=== PATIENT | male | born 1985 | race Caucasian/White ===

== ENCOUNTER 2019-12-10 17:19 | Inpatient (IN) | payer OTHER ==
[~2019-12-10] VITALS: Ht 167.6 cm; Wt 54.4 kg
[2019-12-10 17:59] VITALS: BP_SYST 112
--- NOTE | 2019-12-10 18:06 | NUR ---
Patient to ER bed 07 to gown for evaluation. Side rails up. Report given to BRYSON Mendiola
--- NOTE | 2019-12-10 18:25 | NUR ---
LABS , UA. PT CALM, INCOMPREHENSIBLE SOUNDS. FOLLOWS COMMANDS
[2019-12-10 18:43] LABS: BASOPHILS # (AUTO) 0.1 K/uL (0.0-0.2); BASOPHILS % (AUTO) 0.6 % (0.0-2.0); EOSINOPHILS # (AUTO) 0.1 K/uL (0.0-0.4); EOSINOPHILS % (AUTO) 0.8 % (0.0-4.0); HEMATOCRIT 40.6 % (36-54); HEMOGLOBIN 13.9 g/dL (14.0-18.0); LYMPHOCYTES # (AUTO) 3.2 K/uL (1.0-5.5); LYMPHOCYTES % (AUTO) 33.2 % (20.5-51.5); MEAN CORPUSCULAR HEMOGLOBIN 32 pg (27-31); MEAN CORPUSCULAR HGB CONC 34 % (32-36); MEAN CORPUSCULAR VOLUME 93 fL (79.0-98.0); MONOCYTES # (AUTO) 0.7 K/uL (0.0-1.0); MONOCYTES % (AUTO) 7.4 % (1.7-9.3); NEUTROPHILS # (AUTO) 5.6 K/uL (1.8-7.7); PLATELET COUNT (AUTO) 331 K/uL (130-430); RED BLOOD CELL COUNT(AUTO) 4.37 MIL/uL (4.2-6.2); RED CELL DISTRIBUTION WIDTH 14.2 % (9.0-15.0); WHITE BLOOD COUNT (AUTO) 9.6 K/uL (4.8-10.8)
[2019-12-10 18:45] LABS: ANION GAP 8 (5-15); CALCIUM 8.7 mg/dL (8.4-11.0); CHLORIDE 104 mmol/L (98-107); CREATININE 0.96 mg/dL (0.55-1.30); GLUCOSE 82 mg/dL (70-99); POTASSIUM 3.8 mmol/L (3.5-5.1); SODIUM SERUM 140 mmol/L (136-145); UREA NITROGEN, BLOOD 18 mg/dL (8-21)
[2019-12-10] MEDS ORDERED: NACL 0.9% 1,000 ML IV ONE ×2 (18:45→19:46)
[2019-12-10 18:48] LABS: GFR AFRICAN AMERICAN 117 mL/min (>90)
[2019-12-10 18:50] LABS: PROTHROMBIN TIME 10.1 SECS (9.5-12.5)
[2019-12-10 18:51] LABS: ALANINE AMINOTRANSFERASE 31 U/L (12-78); ALBUMIN 4.1 g/dL (3.4-4.8); ASPARTATE AMINOTRANSFERASE 21 U/L (10-37); TOTAL BILIRUBIN 0.3 mg/dL (0.0-1.0)
[2019-12-10 18:53] LABS: ACETAMINOPHEN < 1 ug/mL (1-30); ALCOHOL, BLOOD < 3 mg/dL (<10)
--- NOTE | 2019-12-10 19:00 | NUR ---
BIB MEDICS FROM STREETS, PT SOILED, SATURATED IN URINE, WEARING MULTIPLE LAYERS OF CLOTHES BUNGIE CORD BELT. 5 PAIRS OF SOCKS. CLOTHING CUT BY MEDICS GRUNTING NOISES BUT FOLLOWS SOME COMMANDS
[2019-12-10 19:17] LABS: BILIRUBIN,URINE NEGATIVE (NEGATIVE); BLOOD, URINE NEGATIVE (NEGATIVE); CLARITY/URINE CLEAR (CLEAR); COLOR,URINE YELLOW (YELLOW); GLUCOSE,URINE NEGATIVE (NEGATIVE); KETONES,URINE NEGATIVE (NEGATIVE); LEUKOCYTE ESTERASE ,URINE NEGATIVE (NEGATIVE); NITRITE, URINE NEGATIVE (NEGATIVE); PROTEIN URINE NEGATIVE (NEGATIVE); UROBILINOGEN,URINE 0.2 (0.2-1.0)
--- NOTE | 2019-12-10 19:30 | NUR ---
CONTINUES TO MAKE GRUNTING NOISES, BUT WILL PAUSE AND SAY SOME WORDS. POOR EYE CONTACT, APPEARS TO RESPOND TO INTERNAL STIMULI.
[2019-12-10 19:42] LABS: BARBITURATE, URINE NEGATIVE (NEG <=200); BENZODIAZEPINE, URINE NEGATIVE (NEG <=150); CANNABINOID, URINE POSITIVE (NEG <=50); COCAINE, URINE NEGATIVE (NEG <=150); METHAMPHETAMINES SCREEN,URINE NEGATIVE (NEG <=500); OPIATE, URINE NEGATIVE (NEG <=100); PHENCYCLIDINE SCREEN,URINE NEGATIVE (NEG <=25); UR TRICYCLIC ANTIDEPRESSANTS NEGATIVE (NEG <=300); URINE AMPHETAMINE POSITIVE (NEG <=500); URINE METHADONE NEGATIVE (NEG <=200); URINE OXYCODONE SCREEN NEGATIVE (NEG <=100); URINE PROPOXYPHENE SCREEN NEGATIVE (NEG <=300)
[2019-12-10] MEDS ORDERED: HALOPERIDOL LACTATE 5 MG/ML VIAL IVP ONE (20:00)
[2019-12-10] MEDS ORDERED: DIPHENHYDRAMINE INJ 50 MG/ML VIAL IVP ONE (20:00)
[2019-12-10] MEDS ORDERED: LORazepam 2 MG/ML VIAL IVP ONE (20:00)
[2019-12-10] MEDS ORDERED: ONDANSETRON HCL 4 MG/2 ML VIAL IVP PRN (20:30)
[2019-12-10] MEDS ORDERED: ACETAMINOPHEN 325 MG TABLET PO PRN (20:30)
[2019-12-10] MEDS ORDERED: HALOPERIDOL LACTATE 5 MG/ML VIAL ONE (20:37)
--- NOTE | 2019-12-10 20:58 | NUR ---
ADMIT ORDERS RECEIVED, PT MEDICATED FOR AGITATION AND PSYCHOSIS
[2019-12-10 21:09] LABS: FREE T4 (FREE THYROXINE) 1.1 ng/dl (0.8-1.5); PHOSPHORUS 4.4 mg/dL (2.7-4.5); THYROID STIMULATING HORMONE 0.81 uIu/mL (0.36-3.74)
--- NOTE | 2019-12-10 21:47 | NUR ---
Patient will be admitted to care of . Admitted to unit. Will go to room . Belongings list completed. Complete and up to date summary report printed. SBAR report to be given at bedside with opportunity for questions.
--- NOTE | 2019-12-10 21:55 | NUR ---
Admission Note Received patient from ER with diagnosis of Acute psychosis. Initial Plan of Care discussed-patient resting in bed. Oriented to room, call light, pain management and safety.
[2019-12-10 22:00] VITALS: BP_SYST 107
[2019-12-10 22:42] VITALS: BP_SYST 107
--- NOTE | 2019-12-11 00:15 | NUR ---
Rounds: Patient is in bed sleeping. No signs of acute distress. Even, nonlabored breathing on room air. IV site dry and intact. IV fluids are infusing well. Call light is with patient. Safety and fall precautions in place. Will continue to monitor
[2019-12-11 00:28] VITALS: BP_SYST 92
--- NOTE | 2019-12-11 02:00 | NUR ---
Rounds: Patient is in bed sleeping. No signs of acute distress. Respirations are even and nonlabored. Call light is with patient. Safety and fall precautions are in place. Will continue to monitor.
--- NOTE | 2019-12-11 04:18 | NUR ---
Rounds: Patient is sleeping in bed. No acute distress. Even, nonlabored respirations. IV fluids infusing well. Call light is with patient. Safety and fall precautions in place. Will continue to monitor.
--- NOTE | 2019-12-11 05:52 | NUR ---
Rounds: Patient is awake, brushing his teeth. No acute distress. Even, nonlabored breathing on room air. IV fluids infusing well. Patient speech is mostly incomprehensible, but is asking for a snack. Patient's diet is NPO. Patient is able to drink water without any signs of aspiration. Call light is with patient. Safety and fall precautions in place. Will call to advance diet.
--- NOTE | 2019-12-11 06:10 | NUR ---
Spoke with Dr. Kyle: Spoke with Dr. Kyle over phone. Dr was made aware that patient is awake and requesting snack. Received order to advance diet to regular. Verified by read-back, RN to input.
--- NOTE | 2019-12-11 06:58 | NUR ---
Closing note: Patient is in bed, awake and calm, watching TV. No acute distress. Even, nonlabored breathing on room air. IV site is patent and intact. IV fluids infusing well. All needs met. Call light is with patient. Safety and fall precautions are in place. Will endorse care to dayshift RN.
[2019-12-11 07:56] LABS: CHOLESTEROL 172 mg/dL (<200); HDL CHOLESTEROL 70 mg/dL (>45); LDL CHOLESTEROL 86 mg/dL (<100); TRIGLYCERIDES 47 mg/dL (30-150)
[2019-12-11 08:00] VITALS: BP_SYST 107
[2019-12-11] MEDS: DOCUSATE SODIUM 100 MG CAPSULE PO SCH (09:00)
[2019-12-11] MEDS ORDERED: LORazepam 2 MG/ML VIAL IM PRN (09:30)
--- NOTE | 2019-12-11 09:30 | NUR ---
CONSULTATION PAGED REASON FOR CONSULTATION:ACUTE PSYCHOSIS HX SCHIZOPHERNIA WAS CONSULT CALLED?Y PERSON WHO WAS NOTIFIED:MARIO CONSULTING PHYSICIAN:ROSEMARIE RINCON ( TIE CUTTER) DIRECTOR OF ADMISSIONS SPECIALTY:PSYCH DIRECTOR OF ADMISSIONS PHONE NUMBER:[phone] ORDERING PHYSICIAN:ELDON MALDONADO
--- NOTE | 2019-12-11 09:31 | NUR ---
CONSULT PSYCH ACUTE PSYCHOSIS HX OF SCHIZOPHRENIA DR VASQUEZ [phone] DR SHERMAN BOX LIDDER S/W DESIREE EXCHANGE
--- NOTE | 2019-12-11 09:41 | NUR ---
PATIENT IS IN BED. TV BEING USED A DIVERSION ACTIVITY. NO SIGNS OR SYMPTOMS OF PAIN, DISTRESS, OR SHORTNESS OF BREATH. PATIENT TOLERATED HIS DIET WELL. PATIENT IS UNABLE TO COMMUNICATE HIS NEEDS. PATIENT IS BEING COOPERATIVE WITH CARE. BED IN LOW POSITION. CALL LIGHT IN REACH. WILL CONTINUE TO MONITOR PATIENT.
--- NOTE | 2019-12-11 09:44 | NUR ---
PATIENT IS ALERT AND ORIENTED X1 TO SELF ONLY.
[2019-12-11 10:26] LABS: BARBITURATE, URINE NEGATIVE (NEG <=200); BENZODIAZEPINE, URINE NEGATIVE (NEG <=150); CANNABINOID, URINE POSITIVE (NEG <=50); COCAINE, URINE NEGATIVE (NEG <=150); METHAMPHETAMINES SCREEN,URINE NEGATIVE (NEG <=500); OPIATE, URINE NEGATIVE (NEG <=100); PHENCYCLIDINE SCREEN,URINE NEGATIVE (NEG <=25); UR TRICYCLIC ANTIDEPRESSANTS NEGATIVE (NEG <=300); URINE AMPHETAMINE POSITIVE (NEG <=500); URINE METHADONE NEGATIVE (NEG <=200); URINE OXYCODONE SCREEN NEGATIVE (NEG <=100); URINE PROPOXYPHENE SCREEN NEGATIVE (NEG <=300)
[2019-12-11 12:37] VITALS: BP_SYST 124
[2019-12-11] MEDS: HYDROcodone/ACETAMIN 5-325 MG TAB (NORCO/ VICODIN) PO PRN ×2 (13:41→19:51)
[2019-12-11] MEDS: NORMAL SALINE 5 ML DISP.SYRIN IVF SCH ×2 (14:00→22:35)
[2019-12-11 17:09] VITALS: BP_SYST 105
--- NOTE | 2019-12-11 18:26 | NUR ---
PATIENT IS IN BED RESTING. PATIENT IS ALERT AND ORIENTED X1-2. PATIENT IS ABLE TO EXPRESS NEEDS A BIT BETTER AND VERBALLY COMPLETE SENTENCES. NO SHORTNESS OF BREATH OR DISTRESS IDENTIFIED. PATIENT DENIES PAIN AND STATED THAT THE PAIN MEDICATION WAS GOOD. BED IN LOW POSITION. CALL LIGHT IN REACH. WILL GIVE REPORT TO NIGHT NURSE.
[2019-12-11 19:49] VITALS: BP_SYST 111
--- NOTE | 2019-12-11 19:51 | NUR ---
PAIN MGT PATIENT MEDICATED WITH NORCO FOR C/O BILATERAL FT PAIN. VITAL SIGNS STABLE. SNACK PROVIDED. CALL LIGHT WITH IN REACH. BED ALARM ON.
--- NOTE | 2019-12-11 22:00 | NUR ---
SNACK HS SNACK PROVIDED PER PATIENT REQUEST.
[2019-12-12 00:46] VITALS: BP_SYST 103
[2019-12-12] MEDS: HYDROcodone/ACETAMIN 5-325 MG TAB (NORCO/ VICODIN) PO PRN ×3 (00:55→20:30)
--- NOTE | 2019-12-12 00:55 | NUR ---
PAIN MGT PATIENT MEDICATED WITH NORCO FOR C/O SUKUMAR. FT PAIN. VITAL SIGNS STABLE. SNACK PROVIDED PER PATIENT REQUEST.
--- NOTE | 2019-12-12 02:45 | NUR ---
ROUNDS PATIENT RESTING IN BED AWAKE. NO DISTRESS NOTED.
--- NOTE | 2019-12-12 04:30 | NUR ---
AM CARE AM CARE DONE BY CRISIS COUNSELOR. SNACK PROVIDED PER PATIENT REQUEST.
[2019-12-12] MEDS: NORMAL SALINE 5 ML DISP.SYRIN IVF SCH ×3 (06:00→22:00)
[2019-12-12 06:27] LABS: CALCIUM 8.9 mg/dL (8.4-11.0); CREATININE 0.76 mg/dL (0.55-1.30); PHOSPHORUS 5.5 mg/dL (2.7-4.5); POTASSIUM 3.6 mmol/L (3.5-5.1)
[2019-12-12 06:35] LABS: BASOPHILS # (AUTO) 0.1 K/uL (0.0-0.2); BASOPHILS % (AUTO) 0.7 % (0.0-2.0); EOSINOPHILS # (AUTO) 0.2 K/uL (0.0-0.4); EOSINOPHILS % (AUTO) 3.1 % (0.0-4.0); HEMATOCRIT 41.7 % (36-54); HEMOGLOBIN 14.5 g/dL (14.0-18.0); LYMPHOCYTES # (AUTO) 3.2 K/uL (1.0-5.5); LYMPHOCYTES % (AUTO) 44.4 % (20.5-51.5); MEAN CORPUSCULAR HEMOGLOBIN 32 pg (27-31); MEAN CORPUSCULAR HGB CONC 35 % (32-36); MEAN CORPUSCULAR VOLUME 93 fL (79.0-98.0); MONOCYTES # (AUTO) 0.6 K/uL (0.0-1.0); MONOCYTES % (AUTO) 8.7 % (1.7-9.3); NEUTROPHILS # (AUTO) 3.1 K/uL (1.8-7.7); NEUTROPHILS % (AUTO) 43.1 % (40.0-70.0); PLATELET COUNT (AUTO) 314 K/uL (130-430); RED CELL DISTRIBUTION WIDTH 13.8 % (9.0-15.0); WHITE BLOOD COUNT (AUTO) 7.3 K/uL (4.8-10.8)
--- NOTE | 2019-12-12 06:39 | NUR ---
CLOSING NOTES PATIENT RESTING IN BED. NO DISTRESS NOTED. PATIENT NEEDS ATTENDED.
--- NOTE | 2019-12-12 06:50 | NUR ---
Nutrition Update Eric Scale 17 noted. Pt admitted for Acute Psychosis, Toxic Encephalopathy Diet: Regular BMI: 19.4 kg/m2 RD to follow per nutrition care standards.
--- NOTE | 2019-12-12 07:30 | NUR ---
OPENING NOTES: PT IS AWAKE, ALERT, RESPIRATIONS EVEN AND UNLABORED. NO ACUTE DISTRESS NOTED. NO PAIN NOTED. WILL CONTINUE TO MONITOR PATIENT.
[2019-12-12 08:00] VITALS: BP_SYST 119
[2019-12-12] MEDS: DOCUSATE SODIUM 100 MG CAPSULE PO SCH (08:00)
--- NOTE | 2019-12-12 11:42 | NUR ---
Dietitian Recommendations *Continue regular diet per MD. *Consider adding ONS if PO intake fails to meet 75% of estimated needs. Please see Nutritional Assessment for details. CALVIN, RD
[2019-12-12 12:15] VITALS: BP_SYST 96
--- NOTE | 2019-12-12 13:57 | NUR ---
SS NOTES/DCP: SPEEDBOAT OPERATOR spoke with Ana MASSEY, pt is not alert and oriented and not appropriate to be assessed. Will follow up.
[2019-12-12 16:10] VITALS: BP_SYST 114
[2019-12-12] MEDS: QUEtiapine FUMARATE 25 MG TABLET PO SCH ×2 (16:18→20:29)
--- NOTE | 2019-12-12 18:59 | NUR ---
CLOSING NOTES: HOURLY ROUNDING PERFORMED. PT IS AWAKE, ALERT, RESPIRATIONS EVEN AND UNLABORED. NO ACUTE DISTRESS NOTED. NO PAIN NOTED. WILL ENDORSE TO EXTRACTIONS TECHNOLOGIST FOR CONTINUITY OF CARE.
--- NOTE | 2019-12-12 19:25 | NUR ---
OPENING NOTES Patient is walking around the room, mumbling, saying he just wants to walk around. Patient states his foot hurts. IV site patent, dressings c/d/i. Patient is back in bed, IV site patent, dressings c/d/i. Call light within reach, bed alarm on, bed at lowest position, tried to educate patient that 3 side rails is ok, but patient refuses and wants 4 side rails on. Will continue to monitor.
[2019-12-12 20:00] VITALS: BP_SYST 111
--- NOTE | 2019-12-13 00:19 | NUR ---
Patient resting, no signs of acute respiratory distress observed. Bed alarm refused after patient education provided. Will continue to monitor.
--- NOTE | 2019-12-13 02:40 | NUR ---
Patient calls 4 times in a matter of 5 minutes and pulls out cord even after sandwich, milk, 2 jellos and 2 puddings provided. Patient throws the milk half way of drinking and spills it on floor and then throws pillow at nurse yelling "Go away, retard, leave me alone" Patient then calls 4 more times in a few minutes to ask for more snacks and tissues. Snacks and 2 Tissue boxes provided and is back in bed, no distress noted. Unable to satisfy needs at this time. Education unable to be provided as patient yells midway and says to go away.
--- NOTE | 2019-12-13 03:45 | NUR ---
BEHAVIOR Patient continues to push call light to ask for snacks, 2 Jello's provided and patient throws them to the floor and yells "Basdar" and that he wants chocolate. Patient states "I want chocolate, Give me chocolate. I know you like it." Addendum: 12/13/19 at 0351 by Mark Copeland RN Unable to satisfy needs.
--- NOTE | 2019-12-13 04:50 | NUR ---
Patient threw bedside table and is throwing belongings around the room. Security called. Patient pulled out call light cord.
[2019-12-13] MEDS: NORMAL SALINE 5 ML DISP.SYRIN IVF SCH ×2 (05:28→14:20)
[2019-12-13] MEDS: HYDROcodone/ACETAMIN 5-325 MG TAB (NORCO/ VICODIN) PO PRN (05:52)
--- NOTE | 2019-12-13 06:00 | NUR ---
Patient pretends to be asleep or yells at nurses when approaching patient asking what he needs and trying to educate to change behavior. When asked by security investigator, patient states that he didn't do it and doesn't know what happened. Pain medication provided for pain of foot.
--- NOTE | 2019-12-13 07:15 | NUR ---
CLOSING NOTES Patient is yelling, throwing drinks onto floor after being provided apple sauce and pain medication. IV site patent, dressings c/d/i. Call light within reach, bed alarm on, bed at lowest position. Will endorse care to oncoming shift.
--- NOTE | 2019-12-13 07:25 | NUR ---
INITIAL NOTE PT AWAKE, SLAMMED DOOR TO ROOM SHUT. EDUCATED PT TO NOT SLAM DOORS CLOSED AND MAINTAIN DOOR OPENED. PT CONFUSED BUT WAS ABLE TO GO BACK TO BED AND ALLOW MORNING VITALS TO BE TAKEN. IV SALINE LOCKED. CALL LIGHT WITHIN REACH, BED IN LOW AND LOCKED POSITION WITH BED ALARM ON.
[2019-12-13 08:00] VITALS: BP_SYST 114
[2019-12-13] MEDS: DOCUSATE SODIUM 100 MG CAPSULE PO SCH (08:04)
[2019-12-13] MEDS: QUEtiapine FUMARATE 25 MG TABLET PO SCH ×2 (08:04→14:20)
--- NOTE | 2019-12-13 09:30 | NUR ---
MEDICATIONS MORNING MEDICATIONS ADMINISTERED. SUPERVISED PT WITH MORNING HYGIENE. PT COOPERATIVE, BUT CONTINUES TO BE CONFUSED.
--- NOTE | 2019-12-13 11:27 | NUR ---
PAIN MEDICATION PT COMPLAINING OF PAIN. PT NOT COOPERATIVE WITH PAIN ASSESSMENT. PRN TYLENOL INDICATED FOR PAIN, MEDICATION ADMINISTERED. WILL CONTINUE TO MONITOR.
[2019-12-13 11:32] VITALS: BP_SYST 113
--- NOTE | 2019-12-13 13:28 | NUR ---
DR. VASQUEZ SPOKE WITH MD AT NURSES STATION. MD TO CLEAR PT FOR DISCHARGE AND FOLLOW UP OUTPATIENT. VERIFIED WITH READ BACK.
--- NOTE | 2019-12-13 14:31 | NUR ---
DR. WILLIAMSON SPOKE WITH MD VIA PHONE, INFORMED MD THAT PT HAS BEEN CLEARED FOR DISCHARGED BY DR. VASQUEZ. MD TO TAKE CARE OF DISCHARGE AND WILL BE PRESCRIBING SEROQUEL FOR PT. VERIFIED WITH READ BACK.
[2019-12-13] MEDS ORDERED: QUET50TA PO (14:35)
--- NOTE | 2019-12-13 15:09 | NUR ---
SS NOTES/DCP ATTEMPT/HOMELESSNESS/SELF-PAY: FUNERAL PLANNER attempted to meet with patient. Pt was agitated, uncooperative and angry and refuses to answer assessment questions. FUNERAL PLANNER also offered homeless resources; pt refused, but requested for a bus pass (which we currently don't have). FUNERAL PLANNER will offer taxi service.
[2019-12-13 15:15] VITALS: BP_SYST 100
[2019-12-13 15:39] VITALS: BP_SYST 100
--- NOTE | 2019-12-13 16:00 | NUR ---
DISCHARGE NOTE Patient given medication reconciliation form and D/C instructions. MD discussed with patient the results and treatment provided. Ambulatory with steady gait for discharge to home. Patient in stable condition, ID band removed. IV catheter removed, intact and dressing applied, no active bleeding. Rx given and instructions given to pt. Verified with pharmacy RX was received. Patient educated on pain management. All belongings sent with patient. Copy of homeless resources with pt. Exit Care provided via wheelchair to front parking lot. Patient verbalized understanding. Taxi provided by hospital to take pt to states destination.
== END 2019-12-13 16:00 | disposition home or self-care (01) | DRG 92 ==
LOC: SED 17:19 → STU 20:29 → SMU 12-11 11:18
PROVIDERS: ADMIT Family Medicine; ATTEND Family Medicine
DX: G92 Toxic encephalopathy (principal); F23 Brief psychotic disorder; E87.1 Hypo-osmolality and hyponatremia; T43.625A Adverse effect of amphetamines, initial encounter; T40.7X5A Adverse effect of cannabis (derivatives), initial encounter; F20.9 Schizophrenia, unspecified; E86.0 Dehydration; F15.929 Other stimulant use, unspecified with intoxication, unspecified; F12.929 Cannabis use, unspecified with intoxication, unspecified; Z79.899 Other long term (current) drug therapy; Y92.89 Other specified places as the place of occurrence of the external cause
CPT/HCPCS: 36415; 36600; 70450-TC; 80048; 80053; 80061; 80307; 81003; 82140-TC; 82150-TC; 82803-TC; 83036; 83690-TC; 83735-TC; 84100-TC; 84439; 84443-TC; 84484; 85025; 85610-TC; 85730-TC; 93005; 96361; 96374; 96375; 99285; G0378; G0480; G0481; G0482; J1200; J1630; J2060; J7030